=== PATIENT | female | born 1995 | race African-American/Black ===

== ENCOUNTER 2019-11-21 05:34 | Inpatient (IN) | payer OTHER ==
[2019-11-21] MEDS ORDERED: CITRIC ACID/SODIUM CITRATE 30 ML UNIT-DOSE CUP PO ONE (05:45)
[2019-11-21] MEDS ORDERED: ELECTROLYTE-148 SOLN 500 ML IV ONE (05:45)
[2019-11-21] MEDS ORDERED: ELECTROLYTE-148 SOLN 1,000 ML IV SCH (06:15)
[2019-11-21 06:43] LABS: EOS % 0.5 % (0-4.5); HEMATOCRIT 31.1 % (32.4-45.2); HEMOGLOBIN 10.1 GM/dL (10.7-15.3); LYMPH % 26.2 % (8-40); MCH 24.4 pg (25.7-33.7); MCHC 32.4 g/dl (32.0-36.0); MEAN CELL VOLUME 75.4 fl (80-96); MEAN PLT VOLUME 8.5 fl (7.5-11.1); NEUT % 67.3 % (42.8-82.8); PLATELET COUNT 244 K/MM3 (134-434); RBC 4.13 M/mm3 (3.60-5.2); RDW 23.9 % (11.6-15.6); WHITE BLOOD COUNT 7.4 K/mm3 (4.0-10.0)
[2019-11-21 06:52] LABS: INR 0.89 (0.83-1.09); PROTHROMBIN TIME (PATIENT) 10.5 SEC (9.7-13.0)
[2019-11-21 06:55] LABS: ACTIVATED PTT 24.9 SECONDS (25.2-36.5)
[2019-11-21] MEDS ORDERED: morphine SULFATE/PF 0.5 MG/ML (2cc Syringe - QUVA) ONE (07:15)
[2019-11-21] MEDS ORDERED: KETOROLAC TROMETHAMINE 30 MG/1 ML VIAL ONE (07:16)
[2019-11-21] MEDS ORDERED: PHENYLEPHRINE HCL 10 MG/1 ML SINGLE DOSE VIAL ONE (07:16)
[2019-11-21] MEDS ORDERED: ceFAZolin SODIUM 1 GM VIAL ONE (07:16)
[2019-11-21 07:26] LABS: ANISOCYTOSIS 2+
[2019-11-21 07:28] LABS: OVALOCYTE FEW
[2019-11-21 07:29] LABS: PLATELET ESTIMATE ADEQUATE
[2019-11-21 07:39] LABS: BLOOD UREA NITROGEN 8.6 mg/dL (7-18); CALCIUM 8.8 mg/dL (8.5-10.1); CREATININE 0.8 mg/dL (0.55-1.3); POTASSIUM 4.9 mmol/L (3.5-5.1)
[2019-11-21] MEDS ORDERED: morphine SULFATE/PF 0.5 MG/ML (2cc Syringe - QUVA) SPIN ONE (08:20)
[2019-11-21] MEDS ORDERED: OXYTOCIN 10 UNITS/ML VIAL ONE (09:14)
[2019-11-21] MEDS ORDERED: ONDANSETRON 4 MG/2 ML VIAL IVPUSH PRN ×2 (09:55)
[2019-11-21] MEDS ORDERED: ACETAMINOPHEN 1000 MG/100 ML VIAL (NON FORMULARY) IVPB ONE ×2 (09:59→11:00)
[2019-11-21] MEDS ORDERED: LACTATED RINGERS SOLUTION 1,000 ML IV SCH (10:00)
[2019-11-21] MEDS ORDERED: SENNOSIDES/DOCUSATE COMBO (SENNA PLUS) TABLET (UD) PO PRN (10:09)
[2019-11-21] MEDS ORDERED: METHYLERGONOVINE MALEATE 0.2 MG/1 ML AMP IM PRN (10:09)
[2019-11-21] MEDS ORDERED: OXYTOCIN 20 UNITS in 0.9% NS 20 UNIT/1,000 ML INFUS.BAG IV SCH (10:15)
[2019-11-21] MEDS ORDERED: FAMOTIDINE 20 MG TABLET PO PRN (10:23)
--- NOTE | 2019-11-21 10:32 | OP ---
Operative Note - Note: Operative Date: 11/21/19 Operation: low transverse section Findings: as dictated Post-Operative Diagnosis: Same as Pre-op Surgeon: Eliezer Diaz Fine Unhairer: Juanjose Diaz Anesthesiologist/TIPPING MACHINE OPERATOR: Tawanda Mohan Anesthesia: Spinal (duramorph spinal) Estimated Blood Loss (mls): 800 (ml) Drains, Volume Out (mls): 500 (ml yellow urine) Fluid Volume Replaced (mls): 1,200 (ml LR) Operative Report Dictated: Yes
[2019-11-21] MEDS ORDERED: ACETAMINOPHEN INJECTION 100 ML IVPB ONE (10:44)
--- NOTE | 2019-11-21 10:54 | HP ---
Past Medical History - Primary Care Physician PCP:: Eliezer Diaz - Admission History of Present Illness: term pregnanncy. Oblique/transverse lie History Source: Caregiver Limitations to Obtaining History: No Limitations - Past Medical History CAMPUS RECRUITING COORDINATOR: No: Alzheimer's, CVA, Dementia, Migraine, Multiple Sclerosis, Peripheral Neuropathy, Parkinson's, Seizure, Syncope, TIA, Vertigo, Other Cardiovascular: No: AFIB, Aneurysm, Aortic Insufficiency, Aortic Stenosis, CAD, CHF, Deep Vein Thrombosis, HTN, Hyperlipdemia, NC, Mitral Insufficiency, Mitral Stenosis, Murmur, Pulmonary Hypertension, Other Pulmonary: No: Asthma, Bronchitis, Cancer, COPD, O2 Dependent, Pneumonia, Previously Intubated, Pulmonary Embolus, Pulmonary Fibrosis, Sleep Apnea, Other Gastrointestinal: No: Ascites, Cancer, Constipation, Crohn's Disease, Diverticulitis, Diverticulosis, Esophageal Varices, Gastritis, GERD, GI Bleed, Hemorrhoids, Hiatal Hernia, Inflamatory Bowel Disease, Irritable Bowel Disease, Pancreatitis, Peptic Ulcer Disease, Ulcerative Colitis, Other Hepatobiliary: No: Cirrhosis, Cholelithiasis, Cholecystitis, Choledocholithiasis, Hepatitis A, Hepatitis B, Hepatitis C, Other Renal/: No: Renal Failure, Renal Inusuff, BPH, Cancer, Hematuria, Hemodialysis, Neurogenic Bladder, Renal Calculi, UTI, Other ...: 1 ...Para: 0 ...Term: 0 ...: 0 ...Spon : 0 ...Induced : 0 ...Living Children: 0 ...Multiple Gestation: 0 ...LMP: 02/14/19 ... Weeks Gestation by Dates: 40 ...EDC by Dates: 11/21/19 Heme/Onc: No: Anemia, B12 Deficiency, Bleeding Disorder, Cancer, Current Chemotherapy, Current Radiation Therapy, Hemochromatosis, Hypercoaguable State, Myeloproliferative Synd, Sickle Cell Disease, Sickle Cell Trait, Thrombocytopenia, Other Infectious Disease: No: AIDS, C-Diff, Herpes Zoster, HIV, MRSA, STD's, Tuberculosis, VREF, Other Psych: No: Addictions, Anxiety, Bipolar, Depression, Panic, Psychosis, Schizophrenia, Other Musculoskeletal: No: Bursitis, Chronic low back pain, Hemiparesis, Hemiplegia, Osteoarthritis, Paraplegia, Other Rheumatology: No: Fibromyalgia, Gout, Lupus, Rheumatoid Arthritis, Sarcoidosis, Vasculitis, Other ENT: No: Allergic Rhinitis, Sinusitis, Other Endocrine: No: Hay's Disease, Baudilio's Disease, Diabetes Insipidus, Diabetes Mellitus, Hyperparathyroidism, Hyperthyroidism, Hypothyroidism, Osteopenia, SIADH, Other - Past Surgical History Past Surgical History: Yes: None Hx Myomectomy: No Hx Transabdominal Cerclage: No - Smoking History Smoking history: Never smoked Have you smoked in the past 12 months: No - Alcohol/Substance Use Hx Alcohol Use: No Home Medications - Allergies Allergies/Adverse Reactions: Allergies Allergy/AdvReac Type Severity Reaction Status Date / Time Penicillins Allergy Hives Verified 11/14/19 12:58 - Home Medications Home Medications: Ambulatory Orders Ferrous Sulfate [Feosol] 325 mg PO DAILY 11/07/19 Labetalol HCl [Normodyne -] 200 mg PO BID 11/07/19 Vitamins (Sjr) - 1 tab PO DAILY 11/07/19 Review of Systems - Review of Systems Constitutional: reports: No Symptoms Eyes: reports: No Symptoms HENT: reports: No Symptoms Neck: reports: No Symptoms Cardiovascular: reports: No Symptoms Respiratory: reports: No Symptoms Gastrointestinal: reports: No Symptoms Genitourinary: reports: No Symptoms Breasts: reports: No Symptoms Reported Musculoskeletal: reports: No Symptoms Integumentary: reports: No Symptoms Neurological: reports: No Symptoms Endocrine: reports: No Symptoms Hematology/Lymphatic: reports: No Symptoms Psychiatric: reports: No Symptoms Physical Exam - Maternity Vital Signs: Vital Signs Temperature 98.2 F 11/21/19 09:49 Pulse Rate 78 11/21/19 10:20 Respiratory Rate 16 11/21/19 10:20 Blood Pressure 127/65 11/21/19 10:20 O2 Sat by Pulse Oximetry (%) 100 11/21/19 10:20 Constitutional: Yes: Well Nourished, No Distress, Calm Eyes: Yes: WNL, Conjunctiva Clear, EOM Intact HENT: Yes: WNL, Atraumatic, Normocephalic Neck: Yes: WNL, Supple, Trachea Midline Cardiovascular: Yes: WNL, Regular Rate and Rhythm Breast(s): Yes: WNL - Abdominal Exam/OB Fundal Height: 44 Number of Fetuses: Single Presentation: Oblique Contractions: No Heart Rate (range): 135 Heart Rate Location: [facility] Category: I Accelerations: Non-Uniform Decelerations: None - Vaginal Exam/OB Vaginal Bleeding: No Dilatation (cm): 0 Effacement (%): 0 Amniotic Membrane Status: Intact Station: -4 - Physical Exam Musculoskeletal: Yes: WNL - Labs Lab Results: CBC, BMP 11/21/19 06:30 11/21/19 06:28 Problem List - Problems (1) 40 weeks gestation of Code(s): Z3A.40 - 40 WEEKS GESTATION OF (2) Oblique lie Code(s): O32.2XX0 - MATERNAL CARE FOR TRANSVERSE AND OBLIQUE LIE, UNSP Assessment/Plan term 40 wks gestation. Breechh, rotated to oblique/transverse lie. Lga? For elective c/section. Fully discussed. All risks poss. complications explained, Pt. understands and consents.
[2019-11-21] MEDS: IBUPROFEN 800 MG/8 ML IJ IVPB PRN (14:14)
[2019-11-21] MEDS ORDERED: IBUPROFEN 800 MG/8 ML IJ IVPB SCH (15:30)
--- NOTE | 2019-11-21 15:44 | SURG ---
Surgery Fish Hatchery Supervisor Note Fish Hatchery Supervisor: Juanjose Diaz PA-C (Suzy) Date of Service: 11/21/19 Diagnosis: breech, full term Procedure: section I was present for the entirety of the operative procedure. For further detail, please refer to operative report. Visit type - Case Type Case Type: Scheduled - Emergency Emergency Visit: No - New patient This patient is new to me today: Yes Date on this admission: 11/21/19 - Critical Care Critical Care patient: No
[2019-11-21] MEDS ORDERED: ACETAMINOPHEN 1000 MG/100 ML VIAL (NON FORMULARY) IVPB SCH ×2 (17:00→18:30)
[2019-11-21] MEDS: FERROUS SO4 325 MG TABLET (FP) PO SCH (17:44)
[2019-11-21] MEDS: ACETAMINOPHEN 1000 MG/100 ML VIAL (NON FORMULARY) IVPB PRN ×2 (18:13→23:58)
[2019-11-21] MEDS: SIMETHICONE 80 MG TAB.CHEW (FP) PO PRN (18:14)
--- NOTE | 2019-11-21 19:04 | PN ---
Progress Note (short form) - Note Progress Note: POD # 0 postop check at 18:30 hrs. uterus well contracted. dressing clean. binder replaced. small clot on introitus. pelvic done - no clots. Problem List - Problems (1) 40 weeks gestation of Code(s): Z3A.40 - 40 WEEKS GESTATION OF (2) Oblique lie Code(s): O32.2XX0 - MATERNAL CARE FOR TRANSVERSE AND OBLIQUE LIE, UNSP
--- NOTE | 2019-11-21 19:41 | OP ---
DATE OF OPERATION: 11/21/2019 PREOPERATIVE DIAGNOSIS: 1. Intrauterine at 40 weeks of gestation. 2. Oblique lie. 3. Suspected large for gestational age. POSTOPERATIVE DIAGNOSIS: 1. Intrauterine at 40 weeks of gestation. 2. Oblique lie. 3. Suspected large for gestational age. 4. Oblique to transverse lie. SURGEON: Alvarez Caba MD. ANESTHESIOLOGIST: Severino Mohan MD. ANESTHESIA: Spinal. AERODYNAMICS TEACHER: RUSH Vo. DESCRIPTION OF PROCEDURE: Under excellent spinal block, in dorsal lithotomy position with left lateral tilt, patient was prepped and draped for the surgery. A Jones catheter was placed in the bladder. Abdomen was entered through Pfannenstiel incision which was then carried through subcutaneous tissue transversely. Rectus muscles, fascia was opened transversely. Rectus muscles were dissected off the fascia, in the midline, and peritoneum was entered sharply. It was opened vertically. Term uterus with normal adnexa was noted. head was in the left iliac fossa essentially more transverse than oblique. Low uterine segment was completely undeveloped. Bladder flap was incised and taken off the lower uterine segment. Hysterotomy was performed transversely and clear amniotic fluid was noted. Male live was delivered through the hysterotomy without problems. Cord was wrapped around the shoulder. Baby was crying and breathing spontaneously. Cord was divided and was handed over to neonatology team. Cord was divided with delay. Placenta was removed, and uterine cavity was cleaned, and the internal os was dilated. Hysterotomy was closed with a continuous running interlocking Biosyn 0 suture. Additional 2 mattress Biosyn 0 sutures were needed to complete hemostasis. Patient was bleeding excessively from the edges of hysterotomy with more than usual blood loss. Surface bleed of the uterus with some areas with gestational changes bleeding were secured with Bovie and a few interrupted 3-0 Biosyn sutures. Lower uterine segment was secured, noted to be dry. Because of continuous oozing, 2 pieces of Surgicel were placed alongside the incision. With the pelvic area cleaned, peritoneum was closed with continuous running Biosyn 2-0 suture. Bleeding already was noted at the edges of the recti muscles. They were secured with [id number] Biosyn 2-0 sutures. Count was reported as correct x2. Fascia was closed with continuous running Vicryl 1 suture. Subcutaneous tissue was approximated with subcuticular 3-0 Biosyn suture, and skin was approximated with continuous running 3-0 V-Loc suture and Steri-Strips. Uterus was well contracted. Surface oozing and bleeding from unexpected areas complicated the surgery. Hemostasis was however secured completely, and Surgicel was used as an additional safety. Blood loss was 800 mL. Urine was clear in the Jones bag and was 500 mL was collected. Sterile dressing was applied and held in place with a binder. Patient was transferred to the post anesthesia care unit stable, awake, and comfortable. ALVAREZ CABA MD [id number] MTDD
[2019-11-22] MEDS: IBUPROFEN 800 MG/8 ML IJ IVPB PRN (06:31)
[2019-11-22 07:20] LABS: BASO % 0.6 % (0-2.0); EOS % 0.4 % (0-4.5); HEMOGLOBIN 8.8 GM/dL (10.7-15.3); LYMPH % 15.2 % (8-40); MCH 24.8 pg (25.7-33.7); MCHC 32.5 g/dl (32.0-36.0); MEAN CELL VOLUME 76.3 fl (80-96); MEAN PLT VOLUME 8.4 fl (7.5-11.1); NEUT % 80.8 % (42.8-82.8); PLATELET COUNT 231 K/MM3 (134-434); RBC 3.54 M/mm3 (3.60-5.2); WHITE BLOOD COUNT 12.4 K/mm3 (4.0-10.0)
[2019-11-22 07:38] LABS: ALBUMIN 2.2 g/dl (3.4-5.0); BILIRUBIN,TOTAL 0.3 mg/dL (0.2-1); BLOOD UREA NITROGEN 6.8 mg/dL (7-18); CALCIUM 8.3 mg/dL (8.5-10.1); CREATININE 0.9 mg/dL (0.55-1.3); POTASSIUM 4.3 mmol/L (3.5-5.1); TOT PROT 5.9 g/dl (6.4-8.2)
--- NOTE | 2019-11-22 08:35 | PN ---
Progress Note (short form) - Note Progress Note: OB SURGERY POD #1 No acute events since surgery per RN notes. Alert. Ambulating in room with support of . Voiding spontaneously. Tolerating clears. Denies n/v/f/c, CP, palpitations, SOB or DEL REAL. Last Vital Signs Temp Pulse Resp BP Pulse Ox 99.0 F 99 H 18 122/83 100 11/22/19 02:00 11/22/19 06:00 11/22/19 06:31 11/22/19 06:00 11/21/19 11:20 CBC, BMP 11/22/19 06:56 11/22/19 06:56 GEN: a&o. nad PULM: unlabored respirations on room air ABD: dressing c/d/i. wearing (abd binder as instructed) LE: SCDs bilat. all compartments soft A/P: 22 yo female POD #1 s/p low transverse section -regular diet -prn pain management -tylenol for fever > 100.4F -cont to wear abd binder (comfort as well as compression over surgical wound) -- DO NOT USE TAPE -cont to ambulate Above plan discussed with Dr. Diaz and agrees. Problem List - Problems (1) 40 weeks gestation of Code(s): Z3A.40 - 40 WEEKS GESTATION OF (2) Oblique lie Code(s): O32.2XX0 - MATERNAL CARE FOR TRANSVERSE AND OBLIQUE LIE, UNSP
[2019-11-22] MEDS: FERROUS SO4 325 MG TABLET (FP) PO SCH ×2 (08:42→17:44)
[2019-11-22] MEDS ORDERED: BISACODYL 10 MG SUPP.RECT RC PRN (10:10)
--- NOTE | 2019-11-22 10:34 | PN ---
HC Provider Note Provider Note: Anesthesia Post Op Note Pt seen s/p spinal for c/sect Pt denies n/v, no h/a, no puritis Ambulating well, no urinary retention VSS Good pain control no apparent anesthesia complications Cecy Mohan.
[2019-11-22] MEDS: PRENATAL VITAMINS W/ FOLIC ACID TABLET (FP) PO SCH (10:51)
[2019-11-22] MEDS ORDERED: oxyCODONE HCL 5 MG TABLET PO PRN (14:14)
--- NOTE | 2019-11-22 14:16 | PN ---
Progress Note (short form) - Note Progress Note: BP is up. Back to Labetalol. Distended. Some flatus. OOB! May shower. Problem List - Problems (1) 40 weeks gestation of Code(s): Z3A.40 - 40 WEEKS GESTATION OF (2) Oblique lie Code(s): O32.2XX0 - MATERNAL CARE FOR TRANSVERSE AND OBLIQUE LIE, UNSP
[2019-11-22] MEDS: IBUPROFEN 600 MG TABLET (FP) PO PRN ×2 (14:44→21:43)
[2019-11-22] MEDS: SIMETHICONE 80 MG TAB.CHEW (FP) PO PRN ×2 (14:45→21:42)
[2019-11-22] MEDS ORDERED: LABETALOL HCL 200 MG TABLET (FP) PO ONE (15:00)
[2019-11-22] MEDS: ACETAMINOPHEN 325 MG TABLET (FP) PO PRN (21:43)
[2019-11-22] MEDS: LABETALOL HCL 200 MG TABLET (FP) PO SCH (21:44)
[2019-11-23] MEDS: IBUPROFEN 600 MG TABLET (FP) PO PRN ×2 (06:35→13:52)
[2019-11-23] MEDS: ACETAMINOPHEN 325 MG TABLET (FP) PO PRN ×2 (06:35→13:53)
[2019-11-23] MEDS: SIMETHICONE 80 MG TAB.CHEW (FP) PO PRN ×2 (06:38→13:53)
[2019-11-23] MEDS: FERROUS SO4 325 MG TABLET (FP) PO SCH ×2 (08:24→18:30)
[2019-11-23] MEDS: LABETALOL HCL 200 MG TABLET (FP) PO SCH (10:39)
[2019-11-23] MEDS: PRENATAL VITAMINS W/ FOLIC ACID TABLET (FP) PO SCH (10:40)
--- NOTE | 2019-11-23 11:48 | PN ---
Progress Note (short form) - Note Progress Note: POD 2, s/p c section Pt seen and examined. Reports she is feeling well today. Has some pain, improved with pain regimen. Has been oob without issue. Tolerating PO. Had a BM. Denies cp/sob, n/v/d. Vital Signs Temp 98.2 F 11/23/19 08:30 Pulse 85 11/23/19 10:20 Resp 18 11/23/19 08:30 BP 140/76 11/23/19 10:20 Pulse Ox 100 11/21/19 11:20 Intake & Output 11/22/19 11/22/19 11/23/19 11:59 23:59 11:59 Intake Total 825 1000 Output Total 1900 700 Balance -1075 300 Intake: IV 825 1000 NORMAL SALINE+20 UNITS 825 1000 OXYTOCIN - 20 unit In 1, 000 ml @ 125 mls/hr IV ASDIR ILAY Rx#:[id number] Output: Urine 1900 700 Jones 600 Void 1300 700 Other: Voiding Method Toilet Toilet Toilet CBC, BMP 11/22/19 06:56 11/22/19 06:56 Gen: awake, alert, nad Resp: Unlabored on RA Abdo: soft, ttp near incision appropriate to status. Incision intact with steristrips in place. No erythema or drainage. +bowel sounds. Ext: trace edema, no ttp A/P: 24 y/o F w/ no significant PMHx admitted at 40 weeks gestation for elective c.section at 40 weeks. afebrile, bp ranging 1teens to 140s. Labs noted Pt may go later today pending bp meds sent to [facility] pharmacy will check on pt this afternoon regarding d/c update: pt cleared for d/c per attending Dr Diaz d/w attending Dr Diaz
[2019-11-23 13:58] VITALS: BP 119/82; PULSE 86; TEMP 98.4
[2019-11-23] MEDS ORDERED: LABETALOL HCL 100 MG TABLET (FP) PO SCH (22:00)
--- NOTE | 2019-11-25 17:14 | PATH ---
Surgical Pathology Report Patient Name: RAJ SWAIN Med. Rec. #: [id number] /Age/Gender: 1995 (Age: 24) / F Account: [id number] Location: [facility] OBS/PLYWOOD PATCHER Taken: 11/21/2019 Received: 11/21/2019 Reported: 11/25/2019 Physicians: Eliezer Diaz MD Specimen(s) Received PLACENTA Clinical History Final Diagnosis PLACENTA, SECTION: 425 G THIRD TRIMESTER PLACENTA WITH TRIVASCULAR UMBILICAL CORD, UNREMARKABLE PLACENTAL MEMBRANES, AND MODERATE INTERVILLOUS FIBRIN DEPOSITION. Electronically Signed Edda Marie M.D. Gross Description The specimen is received fresh labeled placenta and is a 425 gram, 16.0 x 13.0 x 3.0 cm. placenta with attached membranes and umbilical cord. The attached membranes are norris, translucent with focal opacities and insert marginally. The umbilical cord measures 42 cm. in length and averages 1.2 cm in diameter. The cord inserts eccentrically, 2 cm. to the nearest margin. No true knots or strictures are identified. Cut surface of the umbilical cord reveals 3 vessels. The surface is gao blue with moderate fibrin deposition and appropriate caliber vessels. The maternal surface is red-brown with focal defects. Sectioning reveals red-brown, spongy parenchyma. No lesions are identified. Solid Waste Division Supervisor sections are submitted in three cassettes as follows: 1- membrane rolls and umbilical cord; 2-3- full thickness sections of placenta. 11/24/2019 [facility]11/24/2019
== END 2019-11-23 19:10 | disposition home or self-care (01) | DRG 788 ==
LOC: JLDR 05:34 → J3W 11:30
PROVIDERS: ADMIT Specialist; ATTEND Specialist
PROC: 10D00Z1 Extraction of Products of Conception, Low, Open Approach (ICD-10-PCS; principal; 2019-11-21 08:00)
DX: O82 Encounter for cesarean delivery without indication (principal); O48.0 Post-term pregnancy; O32.2XX0 Maternal care for transverse and oblique lie, not applicable or unspecified; O36.63X0 Maternal care for excessive fetal growth, third trimester, not applicable or unspecified; O13.4 Gestational [pregnancy-induced] hypertension without significant proteinuria, complicating childbirth; Z3A.40 40 weeks gestation of pregnancy; Z37.0 Single live birth
CPT/HCPCS: 36415; 80048; 80053; 85025; 85610; 85730; 86780; 86850; 86900; 86901; 88307-TC; 94760; J0131

== ENCOUNTER 2019-12-13 22:04 | Emergency (ER) | payer OTHER ==
--- NOTE | 2019-12-13 22:21 | PDOC ---
Rapid Medical Evaluation Chief Complaint: SIRS, Suspected/Possible Time Seen by Provider: 12/13/19 22:16 Medical Evaluation: Allergies Allergy/AdvReac Type Severity Reaction Status Date / Time Penicillins Allergy Hives Verified 11/14/19 12:58 12/13/19 22:16 24 year old female send by her blast furnace supervisor for fever, lightheadedness, 2 days . patient is s/p C/section on 11/21/19. denies NVD, abdominal pain, breast pain, urinary symptoms. Last Vital Signs Temp Pulse Resp BP Pulse Ox 101 F H 113 H 22 H 129/83 100 12/13/19 22:26 12/13/19 22:26 12/13/19 22:26 12/13/19 22:26 12/13/19 22:26 carbon paper coating machine setter: Dr. Zhao PMHX: covid exposure, high blood pressure A; fever; P: labs Discharge Disposition - Diagnosis Fever Qualifiers: Fever type: unspecified Qualified Code(s): R50.9 - Fever, unspecified - Referrals - Patient Instructions - Post Discharge Activity
[2019-12-13] MEDS ORDERED: SODIUM CHLORIDE 1,000 ML IV STA (22:24)
[2019-12-13 22:29] VITALS: BMI 41.3
[2019-12-13] MEDS ORDERED: LACTATED RINGERS SOLUTION 1000 ML INFUS.BAG IV ONE (23:16)
[2019-12-13] MEDS ORDERED: ACETAMINOPHEN 325 MG TABLET (FP) PO ONE (23:16)
--- NOTE | 2019-12-13 23:16 | PDOC ---
Attending Attestation - Resident Resident Name: Chaim Renner - ED Attending Attestation I have performed the following: I have examined & evaluated the patient, The case was reviewed & discussed with the resident, I agree w/resident's findings & plan - HPI HPI: 12/14/19 00:37 see resident hpi - Physicial Exam PE: 12/14/19 00:38 see resident exam - Medical Decision Making 12/14/19 00:38 24-year-old female status post section on November 20 now with fever and drainage from her wound Patient has no leukocytosis, she is overall well-appearing There is some foul-smelling drainage at the wound site with no complaints of pain There is mild tenderness with palpation Urine significant for bacteria and elevated white blood cells possibly indicating urinary tract infection Case discussed with patient's PHYSICAL GEOGRAPHER by the emergency department resident who agrees with DC on antibiotics, Keflex and Bactrim for MRSA coverage, patient given instructions for wound care, she will follow-up with her doctor in the office as instructed Patient was also advised that should she develop resting abdominal pain increased discharge or any worsening in her condition she should return to the emergency department immediately Discharge - Discharge Information Problems reviewed: Yes Clinical Impression/Diagnosis: Wound infection after surgery Fever Qualifiers: Fever type: unspecified Qualified Code(s): R50.9 - Fever, unspecified - Follow up/Referral - Patient Discharge Instructions - Post Discharge Activity
[2019-12-13] MEDS ORDERED: ACETAMINOPHEN 325 MG TABLET (FP) ONE (23:24)
[2019-12-13 23:27] LABS: EPI CELLS 22 /uL (0-25.1); HYALINE CASTS 1 /uL (0-3.1); URINE APPEARANCE CLEAR; URINE BACTERIA 151 /uL (0-1359); URINE BILIRUBIN NEGATIVE (NEGATIVE); URINE COLOR YELLOW; URINE GLUCOSE (UA) NEGATIVE (NEGATIVE); URINE KETONE NEGATIVE (NEGATIVE); URINE LEUK ESTERASE 1+ (NEGATIVE); URINE NITRITE NEGATIVE (NEGATIVE); URINE PROTEIN NEGATIVE (NEGATIVE); URINE RBC 9 /uL (0-23.9); URINE UROBILINOGEN 0.2 mg/dL (0.2-1.0); URINE WBC 29 /uL (0-25.8)
--- NOTE | 2019-12-13 23:28 | PDOC ---
History of Present Illness - General Chief Complaint: SIRS, Suspected/Possible Stated Complaint: FEVER Time Seen by Provider: 12/13/19 22:16 History Source: Patient, Old Records Exam Limitations: No Limitations - History of Present Illness Initial Comments: 24 y/o female presenting to [facility] complaining of lightheadedness x3 days and fever x1 day. Pt is s/p on 11/21/[address] Diaz. Pt reports the course was complicated by gestational HTN but not Pre-E. Does not know her GBS status but states she did not receive antibiotics. Denies h/o STDS. Reports mild numbness around the scar but denies kristie bleeding or discharge. Reports she was experiencing vaginal bleeding after the operation but it has resolved in the last two days. Denies chills, chest pain, SOB, back pain, abdominal pain, or N/V/D. Past History - Medical History Allergies/Adverse Reactions: Allergies Allergy/AdvReac Type Severity Reaction Status Date / Time Penicillins Allergy Hives Verified 11/14/19 12:58 Home Medications: Ambulatory Orders Labetalol HCl [Normodyne -] 100 mg PO BID #60 tablet 11/23/19 Cephalexin Monohydrate [Keflex -] 500 mg PO BID 7 Days #14 capsule 12/14/19 Sulfamethoxazole/Trimethoprim [Bactrim Ds -] 1 tab PO BID 7 Days #14 tablet 09/27 Asthma: No Cancer: No Cardiac Disorders: No Diabetes: No HTN: Yes (Gestational HTN) Seizures: No Thyroid Disease: No - Surgical History Other Surgical History: S/p on 11/21/19 - Reproductive History Is Patient Now?: No - Psycho-Social/Smoking History Smoking History: Never smoked Have you smoked in the past 12 months: No - Substance Abuse Hx (Audit-C & DAST Scrn) How often the patient has a drink containing alcohol: Never Score: In Men: 4 or > Positive; In Women: 3 or > Positive: 0 Screen Result (Pos requires Nsg. Audit-10AR): Negative Review of Systems - Review of Systems Able to Perform ROS?: Yes Comments:: 10 point review of systems completed. All systems negative except as noted above. *Physical Exam - Vital Signs Last Vital Signs Temp Pulse Resp BP Pulse Ox 101 F H 113 H 22 H 129/83 100 08/04/20 22:26 12/13/19 22:26 12/13/19 22:26 12/13/19 22:26 12/13/19 22:26 - Physical Exam Vital signs and nursing notes reviewed. Constitutional- Well-developed, well-nourished adult female in no acute distress or obvious discomfort. Nontoxic in appearance. Found semi-fowlers on hospital bed. Answered all questions appropriately and completely. Head- Normocephalic. No obvious external signs of trauma. Eyes- Sclerae white. Neck- Supple, trachea is midline. Cardiovascular / Chest- Regular rate and regular rhythm. No murmur, rubs, c licks, or gallops. Peripheral pulses- radial pulses full. Respiratory- Breathing unlabored. Speaking in multi-word responses without pausing. Equal chest rise and fall. Clear to auscultation bilaterally. No stridor, no wheezing, no rhonchi. Gastrointestinal- abdomen is soft, non-tender, non-distended. LTV post-op wound with two areas of minimal dehiscence. Tissue appears erythematous with trace amount of purulent discharge. Pt would not tolerate probing with an applicator. The surrounding area appears unremarkable. No obvious fluctuance or enduration. Neuro- Alert and oriented x4. Moving all four extremities spontaneously. No facial asymmetry. No slurred speech. Skin- Warm and dry. - No R or L CVA tenderness. Psych- Affect- appropriate. Mood- normal. Speech was non-labored, non- pressured. ED Treatment Course - LABORATORY CBC & Chemistry Diagram: 12/13/19 22:50 12/13/19 22:50 - ADDITIONAL ORDERS Additional order review: Laboratory Results 12/13/19 22:50 Urine Color Yellow Urine Appearance Clear Urine pH 5.0 D Ur Specific [place] 1.017 Urine Protein Negative Urine Glucose (UA) Negative Urine Ketones Negative Urine Blood Negative Urine Nitrite Negative Urine Bilirubin Negative Urine Urobilinogen 0.2 Ur Leukocyte Esterase 1+ H Urine WBC (Auto) 29 Urine RBC (Auto) 9 Urine Casts (Auto) 1 U Epithel Cells (Auto) 22 Urine Bacteria (Auto) 151 - RADIOLOGY Radiology Studies Ordered: Category Date Time Status CHEST X-RAY PORTABLE* [RAD] Stat Radiology 12/13/19 23:15 Ordered - Medications Given in the ED: ED Medications Discontinued Medications Generic Name Dose Route Start Last Admin Trade Name Freq PRN Reason Stop Dose Admin Sodium Chloride 1,000 mls @ 1,000 mls/hr 12/13/19 22:24 12/13/19 23:10 Normal Saline - IV 12/13/19 23:23 1,000 mls/hr ASDIR STA Administration Lactated Ringer's 1,000 ml 12/13/19 23:16 12/13/19 23:19 Lactated Ringers Solution IV 12/13/19 23:17 1,000 ml ONCE ONE Administration Medical Decision Making - Medical Decision Making 24 y/o 3 weeks female s/p presenting on referral from her OB for fever and lightheadedness. Febrile and tachycardic without hypotension in triage. Given Tylenol and LR IVFB. Physical exam concerning for post-op wound infection. ED Sepsis order set initiated. ED wet read of CXR unremarkable for acute cardiopulmonary findings. No obvious infiltrates. Bra clasp noted. Radiology report pending. Labs reviewed. Noted elevated lactic acid without leukocytosis or acidosis. Suspect secondary to mild dehydration. Will trend after completing LR IVFB. Repeat lactic acid downtrending. Low suspicion for more serious bacterial infection. Wound cleaned with Betadine and covered with dry dressing. Will prescribe Bactr im and Keflex for outpatient abx therapy. First dose given in the ED. Discussed possibility of Bactrim decreasing breast milk production. Pt reports she is already supplementing with formula feeds. Case discussed with Dr. Diaz via telephone. Agreed with current plan. Requested the pt call the office to schedule follow up visit in two days. Discussed physical exam findings, laboratory results, and xrays findings with pt. Answered all questions. Provided return precautions. pt expressed verbal understanding and agreement with plan to discharge home with outpatient follow up. Provided copies of todays results. Discussed physical exam findings, laboratory results, and xrays findings with pt. Answered all questions. Provided return precautions. pt expressed verbal understanding and agreement with plan to discharge home with outpatient follow up. Provided copies of todays results. Encouraged close f/u with OBGYN. Case discussed with ED Attending Dr. Gonzalez. Chaim Renner M.D., PGY3 Emergency Medicine Resident Discharge - Discharge Information Problems reviewed: Yes Clinical Impression/Diagnosis: Wound infection after surgery Fever Qualifiers: Fever type: unspecified Qualified Code(s): R50.9 - Fever, unspecified Condition: Good Disposition: HOME - Admission No - Additional Discharge Information Prescriptions: Sulfamethoxazole/Trimethoprim [Bactrim Ds -] 1 tab PO BID 7 Days #14 tablet Cephalexin Monohydrate [Keflex -] 500 mg PO BID 7 Days #14 capsule - Follow up/Referral Referrals: Eliezer Diaz MD [Staff Physician] - CallBack Reminder: COVID and Blood Cultures - Patient Discharge Instructions Patient Printed Discharge Instructions: Trimethoprim/Sulfamethoxazole (Al ternative Therapy), DI for Wound Infection, Cephalexin Additional Instructions: You were seen today for a fever and lightheadedness. Your site is likely infected. You were given a dose of two antibiotics called Bactrim and Keflex. I also sent a prescription for these medications to your pharmacy. You should start the prescriptions tomorrow morning. The Bactrim may decrease your breast milk production, so make sure your boy is taking enough formula. You can take over the counter Tylenol as needed for pain and/or fever. Follow the instructions in the package insert. Do not take more than the recommended dose. Keep the wound clean and dry. Cover it with a bandage. Dr. Diaz was contacted and would like you to call his office in the morning to schedule a follow up appointment. A copy of todays results are included in this packet. Take it with you to the appointment so your doctor can review them. Return to the emergency department for new or worsening symptoms, including persistent fever, tachycardia, or worsening abdominal pain as these may be signs of a more serious infection. Print Language: MONGOLIAN - Post Discharge Activity Work/Back to School Note: Back to Work
[2019-12-13 23:32] LABS: BASO % 0.8 % (0-2.0); EOS % 0.8 % (0-4.5); HEMATOCRIT 34.7 % (32.4-45.2); HEMOGLOBIN 11.2 GM/dL (10.7-15.3); LYMPH % 32.3 % (8-40); MCH 26.1 pg (25.7-33.7); MCHC 32.4 g/dl (32.0-36.0); MEAN CELL VOLUME 80.4 fl (80-96); MEAN PLT VOLUME 8.7 fl (7.5-11.1); MONO % 5.5 % (3.8-10.2); NEUT % 60.6 % (42.8-82.8); PLATELET COUNT 350 K/MM3 (134-434); RBC 4.32 M/mm3 (3.60-5.2); RDW 22.1 % (11.6-15.6); WHITE BLOOD COUNT 7.1 K/mm3 (4.0-10.0)
[2019-12-13 23:48] LABS: VENOUS BASE EXCESS 0.7 mmol/L (-2-2); VENOUS O2 SATURATION 80.7 % (70-80); VENOUS PH 7.433 (7.310-7.410)
[2019-12-13 23:57] LABS: ALBUMIN 3.7 g/dl (3.4-5.0); ALK PHOS 86 U/L (45-117); ANION GAP 9 MMOL/L (8-16); BILIRUBIN,TOTAL 0.3 mg/dL (0.2-1); CALCIUM 9.7 mg/dL (8.5-10.1); CHLORIDE 101 mmol/L (98-107); CO2 29 mmol/L (21-32); CREATININE 1.1 mg/dL (0.55-1.3); GLUCOSE,RANDOM 100 mg/dL (74-106); POTASSIUM 3.9 mmol/L (3.5-5.1); SGOT/AST 36 U/L (15-37); SGPT/ALT 38 U/L (13-61); SODIUM 139 mmol/L (136-145); TOT PROT 8.2 g/dl (6.4-8.2); URIC ACID 6.4 mg/dL (2.6-7.2)
[2019-12-14] MEDS ORDERED: LACTATED RINGERS SOLUTION 1000 ML INFUS.BAG IV ONE (00:33)
[2019-12-14] MEDS ORDERED: CEPHALEXIN MONOHYDRATE 500 MG CAPSULE (UD) PO ONE (00:41)
[2019-12-14] MEDS ORDERED: POVIDONE-IODINE OINTMENT 10% - 28.4 GM TUBE TP ONE (00:41)
[2019-12-14] MEDS ORDERED: SULFAMETHOXAZOLE/TRIMETHOPRIM 800MG/160MG D.S. TABLET PO ONE (00:41)
[2019-12-14] MEDS ORDERED: CEPHALEXIN MONOHYDRATE 500 MG CAPSULE (UD) ONE (00:45)
[2019-12-14] MEDS ORDERED: SULFAMETHOXAZOLE/TRIMETHOPRIM 800MG/160MG D.S. TABLET ONE (00:45)
[2019-12-14 01:01] LABS: N-TERMINAL BNP < 5.0 pg/ml (5-125)
[2019-12-14 01:53] LABS: ANISOCYTOSIS 1+; MACROCYTOSIS 0; OVALOCYTE 1+; PLATELET ESTIMATE NORMAL; TEAR DROP CELLS 1+
[2019-12-14 02:46] VITALS: BP 106/68; PULSE 79; TEMP 98.2
[2019-12-14 02:49] LABS: ERYTHROCYTE SEDIMENTATION RATE 17 mm/hr (0-20)
--- NOTE | 2019-12-14 09:06 | EKG ---
Test Reason : Blood Pressure : / mmHG Vent. Rate : 098 BPM Atrial Rate : 098 BPM P-R Int : 150 ms QRS Dur : 076 ms QT Int : 348 ms P-R-T Axes : 059 004 -08 degrees QTc Int : 444 ms NORMAL SINUS RHYTHM MINIMAL VOLTAGE CRITERIA FOR LVH, MAY BE NORMAL VARIANT NONSPECIFIC T WAVE ABNORMALITY ABNORMAL ECG NO PREVIOUS ECGS AVAILABLE Confirmed by Asael Gauthier ([id number]) on 12/14/2019 9:06:12 AM Referred By: Confirmed By:Asael Gauthier
[2019-12-14 14:09] LABS: RETICULOCYTES 1.33 % (0.5-1.5)
--- NOTE | 2019-12-16 09:55 | PDOC ---
Patient Follow-up (Call Back) - Post ED Follow - Up Condition at time of discharge: Good Disposition at time of original discharge: HOME Reason for Call Back: Abnwl. Lab (Elevated haptoglobin. This was ordered by RME prior to my evaluation. Suspect elevation is secondary to active infection.) Signs/Symptoms Improved: Yes - Disposition Rx Needed: No Additional Instructions/Notes: Called pt. She reports her symptoms are improving. No further fevers or discharge from the wound. Tolerating her abx without difficulty. Discussed elevated haptoglobin and suggested she discuss repeat testing with her PCP. Chaim Renner MD, PGY3
== END 2019-12-14 02:47 | disposition home or self-care (01) ==
LOC: JER 22:04
PROC: 3E0337Z Introduction of Electrolytic and Water Balance Substance into Peripheral Vein, Percutaneous Approach (ICD-10-PCS; principal; 2019-12-13)
DX: R50.9 Fever, unspecified (principal)
CPT/HCPCS: 36415; 71045-TC-FY; 80053; 81003; 82803; 83010; 83605; 83880; 84484; 84550; 85025; 85044; 85651; 87040; 87086; 93005; 93010; 99285-25; U0003

== ENCOUNTER 2019-12-29 18:24 | Emergency (ER) | payer OTHER ==
[2019-12-29 19:02] VITALS: BMI 39.4
--- NOTE | 2019-12-29 19:28 | PDOC ---
History of Present Illness - General Chief Complaint: Wound Stated Complaint: WOUND Time Seen by Provider: 12/29/19 19:27 History Source: Patient Exam Limitations: No Limitations - History of Present Illness Initial Comments: 12/29/19 19:29 24yF w PMHx morbid obesity, recent delivery by Dr Diaz 11/21/19 presenting w 4d constant incision foul smelling purulent discharge, mild localized tenderness, and mild bleeding. Evaluated in ED on 12/13/19 for similar presentation attributed to incision infection, neg blood cx, DC w Bactrim and keflex and normal f/u w Dr Diaz. Took the antibiotics as directed. Denies fever, n/v, ABD pain, urinary/bowel mvmt changes. Past History - Medical History Allergies/Adverse Reactions: Allergies Allergy/AdvReac Type Severity Reaction Status Date / Time Penicillins Allergy Hives Verified 12/29/19 18:56 Home Medications: Ambulatory Orders Labetalol HCl [Normodyne -] 100 mg PO BID #60 tablet 11/23/19 Cephalexin Monohydrate [Keflex -] 500 mg PO BID 7 Days #14 capsule 12/14/19 Sulfamethoxazole/Trimethoprim [Bactrim Ds -] 1 tab PO BID 7 Days #14 tablet 12/14/19 Clindamycin [Cleocin -] 300 mg PO Q6HPO 7 Days #28 capsule 12/29/19 Asthma: No Cancer: No Cardiac Disorders: No Diabetes: No HTN: Yes (Gestational HTN) Seizures: No Thyroid Disease: No - Reproductive History Is Patient Now?: Yes - Psycho-Social/Smoking History Smoking History: Never smoked Have you smoked in the past 12 months: No Review of Systems - Review of Systems Constitutional: No: Chills, Fever HEENTM: No: Eye Pain, Nose Pain Respiratory: No: Cough, Shortness of Breath Cardiac (ROS): No: Chest Pain, Lightheadedness ABD/GI: No: Abdominal Distended, Constipated, Diarrhea, Nausea, Vomiting : No: Burning, Dysuria Musculoskeletal: No: Back Pain, Joint Pain Integumentary: No: Bruising, Dryness Neurological: No: Headache, Seizure Psychiatric: No: Anxiety, Depression Endocrine: No: Intolerance to Cold, Intolerance to Heat Hematologic/Lymphatic: No: Anemia, Blood Clots *Physical Exam - Vital Signs Last Vital Signs Temp Pulse Resp BP Pulse Ox 97.8 F 101 H 16 120/83 99 12/29/19 18:56 12/29/19 18:56 12/29/19 18:56 12/29/19 18:56 12/29/19 18:56 - Physical Exam General Appearance: Yes: Nourished, Appropriately Dressed, Mild Distress, Obese HEENT: positive: EOMI, ALICIA, Normal Voice Respiratory/Chest: positive: Lungs Clear, Normal Breath Sounds. negative: Chest Tender, Respiratory Distress, Crackles, Rales, Rhonchi, Stridor, Wheezing Cardiovascular: positive: Regular Rhythm, S1, S2, Tachycardia. negative: Edema, Murmur Gastrointestinal/Abdominal: positive: Normal Bowel Sounds, Flat, Soft, Other (c- section incision w mild tenderness, purulent discharge w minimal spotting, 1cm opening, no dehiscence, no necrotic tissue) Integumentary: positive: Normal Color, Warm Neurologic: positive: Fully Oriented, Alert, Normal Response ED Treatment Course - LABORATORY CBC & Chemistry Diagram: 12/29/19 20:20 12/29/19 19:55 Medical Decision Making - Medical Decision Making 12/29/19 19:59 CT A/P - small amount of fluid anterior uterine segment at site of prob post-op, no abscess --- 24yF w PMHx morbid obesity, recent delivery by Dr Diaz 11/21/19 presenting w 4d constant incision purulent discharge, mild localized tenderness, and mild bleeding Likely post-op incision infection. No sign of abscess on CT Pt refused pain meds No chance that pt is given that pt gave [address] Diaz [place] - advised order CT A/P r/o intraabdominal infection. If everything ok, DC home w antibiotics and f/u in his office tmrw DC home w OBGYN f/u tmrw, clindamycin prescription Discharge - Discharge Information Problems reviewed: Yes Clinical Impression/Diagnosis: section wound complication Condition: Good Disposition: HOME - Additional Discharge Information Prescriptions: Clindamycin [Cleocin -] 300 mg PO Q6HPO 7 Days #28 capsule - Follow up/Referral Referrals: Eliezer Diaz MD [Staff Physician] - - Patient Discharge Instructions Patient Printed Discharge Instructions: DI for Surgical Site Infection Additional Instructions: You have a surgical site infection. Your imaging did not show any signs of a deep infection or complication Take the prescribed clindamycin as directed for your infection Take tylenol if you have pain Follow up with your OBGYN Dr Diaz tomorrow in clinic - Post Discharge Activity
[2019-12-29 20:23] LABS: BASO % 0.7 % (0-2.0); EOS % 1.2 % (0-4.5); HEMATOCRIT 36.1 % (32.4-45.2); HEMOGLOBIN 11.6 GM/dL (10.7-15.3); LYMPH % 33.2 % (8-40); MCHC 32.2 g/dl (32.0-36.0); MEAN CELL VOLUME 80.8 fl (80-96); MEAN PLT VOLUME 8.1 fl (7.5-11.1); MONO % 4.4 % (3.8-10.2); NEUT % 60.5 % (42.8-82.8); PLATELET COUNT 338 K/MM3 (134-434); RBC 4.46 M/mm3 (3.60-5.2); RDW 18.9 % (11.6-15.6); WHITE BLOOD COUNT 7.4 K/mm3 (4.0-10.0)
--- NOTE | 2019-12-29 20:27 | PDOC ---
Documentation entered by Clari Emerson SCRIBE, acting as scribe for Radha Miller DO. Radha Miller DO: This documentation has been prepared by the Idania johnson Brenda, SCRIBE, under my direction and personally reviewed by me in its entirety. I confirm that the documentation accurately reflects all work, treatment, procedures, and medical decision making performed by me. Attending Attestation - Resident Resident Name: Mary,Elton - ED Attending Attestation I have performed the following: I have examined & evaluated the patient, The case was reviewed & discussed with the resident, I agree w/resident's findings & plan, Exceptions are as noted - HPI HPI: 12/29/19 19:43 The patient is a 24 year old female () with a significant PMH of morbid obesity who presents to the emergency department for evaluation of 3-4 days o f progressively worsening foul smelling discharge and pain from sight, done on 11/21/19. Patient also notes that the sight has been mildly bleeding. Patient was seen in the ED on 12/13/19 for the same complaints and was discharged with Bactrima dn Keflex for follow up with Dr. Diaz. Patient endorses a reecnt efever of 105. The patient denies chest pain, shortness of breath, headache and dizziness. Denies chills, nausea, vomiting, diarrhea and constipation. Denies dysuria, frequency, urgency and hematuria. Allergies: Penicillins Past surgical history: Csection Social history: No reported hx of tobacco use, alcohol use or illicit drug use. OBGYN: Dr. Diaz - Physicial Exam PE: 12/29/19 19:55 GENERAL: Obese . Awake, alert, and fully oriented, in no acute distress NECK: Normal ROM, supple, no lymphadenopathy, JVD, or masses LUNGS: Breath sounds equal, clear to auscultation bilaterally. No wheezes, and no crackles HEART: (+) Tachycardic. Regular rhythm, normal S1 and S2, no murmurs, rubs or gallops ABDOMEN: (+) wound is mildly dehisced. No fluctuance underneath. (+) Wound is Wound serosangunous with pirulent drainage. Foul Smelling. Unable to palpate bladder. Culture swab went in 2 length of qtip. Soft, normoactive bowel sounds. No guarding, no rebound. No masses EXTREMITIES: Normal range of motion, no edema. No clubbing or cyanosis. No cords, erythema, or tenderness NEUROLOGICAL: Cranial nerves II through XII grossly intact. Normal speech, normal gait SKIN: Warm, Dry, normal turgor, no rashes or lesions noted. - Medical Decision Making 12/29/19 20:25 a/p: 24yo female s/p c section 11/[address] Diaz -states she was eval for the wound and purulent drainage about 2 weeks ago, placed on bactrim and keflex -symptoms improved -again for 3-4 days of purulent drainage from the c section site -not -no fevers -will send labs, wound culture, ct abd/pelvis -resident discussed the case with Dr. Diaz who agrees with the plan -will monitor and reassess 12/29/19 21:16 no elevated wbc labs reviewed and stable ct pending 12/29/19 22:24 small amount of fluid to the anterior uterus, most likely post surgical per rads, no abscess identified will need oral abx for localized skin infection and follow up with Dr. Diaz tomorrow in the office Discharge - Discharge Information Problems reviewed: Yes Clinical Impression/Diagnosis: section wound complication Condition: Stable Disposition: HOME - Admission No - Follow up/Referral - Patient Discharge Instructions - Post Discharge Activity
[2019-12-29 20:59] LABS: ALBUMIN 3.7 g/dl (3.4-5.0); BILIRUBIN,TOTAL 0.4 mg/dL (0.2-1); BLOOD UREA NITROGEN 10.9 mg/dL (7-18); CALCIUM 9.5 mg/dL (8.5-10.1); POTASSIUM 4.4 mmol/L (3.5-5.1); TOT PROT 7.9 g/dl (6.4-8.2)
[2019-12-29 22:56] VITALS: BP 122/80; PULSE 89; TEMP 98.1
== END 2019-12-29 22:55 | disposition home or self-care (01) ==
LOC: JER 18:24
DX: O75.4 Other complications of obstetric surgery and procedures (principal)
CPT/HCPCS: 36415; 74177-TC; 80053; 85025; 87040; 87070; 87205; 99284-25; Q9967